=== PATIENT | female | born 1945 | race Two or more races ===

== ENCOUNTER 2023-11-27 20:59 | Inpatient (IN) | payer OTHER ==
[~2023-11-27] VITALS: Ht 154.9 cm; Wt 49.9 kg
[2023-11-27 21:57] LABS: HEMOGLOBIN 13.8 g/dL (12.0-15.00); MEAN CORPUSCULAR HEMOGLOBIN 32.1 pg (27.00-32.0); MEAN CORPUSCULAR HGB CONC 34.5 g/dl (32.0-36.0); PLATELET COUNT 490 K/uL (150-450); RED CELL DISTRIBUTION WIDTH 13.4 % (11.5-14.5)
[2023-11-27 22:00] LABS: URINE APPEARANCE Clear; URINE BILIRRUBIN Negative (NEGATIVE); URINE BLOOD Negative; URINE COLOR Yellow; URINE GLUCOSE Negative (NEGATIVE); URINE LEUKOCYTE Negative; URINE NITRATE Negative; URINE PROTEIN Negative (NEGATIVE); URINE UROBILINOGEN 0.2 E.U./dl
[2023-11-27 22:04] LABS: URINE BACTERIA 8.8 uL (0.0-1933); URINE RBC 3.1 uL (0.0-20.8); URINE WBC 1.9 uL (0.0-23.2)
[2023-11-27 22:08] LABS: URINE EPITHELIAL CELLS 1.2 uL (0.0-38.8)
[2023-11-27 22:10] LABS: CALCIUM 10.2 mg/dL (8.5-10.1); CREATININE SERUM 0.66 mg/dL (0.55-1.02); GFR 86.84; POTASSIUM 3.87 mEq/L (3.5-5.1)
[2023-11-27 22:35] LABS: ABG PH 7.445 (7.35-7.45); ABG PO2 60.5 mmHg (80-100); ABG pCO2 38.1 mmHg (35-45)
[2023-11-27 22:37] LABS: BASE EXCESS 1.7 mmol/l; BICARBONATE 25.6 mmol/l (23-25); SaO2 92.1 %
[2023-11-27 22:38] LABS: Tco2 26.8 mmol/l
[2023-11-27 22:41] LABS: o2 21 %
[2023-11-27 22:42] LABS: allen test SATISFACTORY; puncture site RADIAL LEFT
[2023-11-29 07:09] LABS: INR 1.05; PARTIAL THROMBOPLASTIN TIME 30.1 SECONDS (22.0-34.0)
[2023-11-29 07:32] LABS: ALKALINE PHOSPHATASE 77 U/L (50-136); ALT/SGPT 22 U/L (12-78); ANION GAP 8 (10.0-20.0); AST/SGOT 11 U/L (15-37); BILIRUBIN TOTAL 0.34 mg/dL (0.3-1.2); BILIRUBIN,CONJUGATED < 0.10 mg/dL (0.0-0.2); BILIRUBIN,UNCONJUGATED 0.24 mg/dL (0.0-0.6); BLOOD UREA NITROGEN 19 mg/dL (7-18); BUN CREA RATIO 34 (7.0-25.0); CALCIUM 8.7 mg/dL (8.5-10.1); CARBON DIOXIDE 26 mEq/L (21-32); CHLORIDE 107 mmol/L (98-107); CHOL HDL RATIO 2.6 (0-5.0); CHOLESTEROL 151 mg/dL (0-200); CREATININE SERUM 0.56 mg/dL (0.55-1.02); GFR 104.97; GLUCOSE FASTING 152 mg/dL (65-100); HDL 58 mg/dl (40-60); LDL 84 mg/dl (0-130); OSMOLALITY SERUM 277 MOSM/KG (275-295); POTASSIUM 5.22 mEq/L (3.5-5.1); SODIUM 136 mmol/L (136-145); TRIGLYCERIDES 44 mg/dL (0-150); VLDL 8 (0-39)
[2023-11-29 07:33] LABS: C-REACTIVE PROTEIN < 0.29 MG/DL (0.00-0.29)
[2023-11-29 08:01] LABS: URINE APPEARANCE Clear; URINE BILIRRUBIN Negative (NEGATIVE); URINE BLOOD Negative; URINE COLOR Yellow; URINE GLUCOSE Negative (NEGATIVE); URINE LEUKOCYTE Negative; URINE NITRATE Negative; URINE PROTEIN Negative (NEGATIVE); URINE UROBILINOGEN 0.2 E.U./dl
[2023-11-29 08:03] LABS: URINE EPITHELIAL CELLS 4.6 uL (0.0-38.8)
[2023-11-29 08:48] LABS: URINE BACTERIA 3.7 uL (0.0-1933); URINE RBC 1.4 uL (0.0-20.8); URINE WBC 0.9 uL (0.0-23.2)
[2023-11-29 14:36] LABS: HEMATOCRIT 37.2 % (36.0-45.00); HEMOGLOBIN 12.3 g/dL (12.0-15.00); MEAN CELL VOLUME 95.6 fL (80.00-100.00); MEAN CORPUSCULAR HEMOGLOBIN 31.7 pg (27.00-32.0); MEAN CORPUSCULAR HGB CONC 33.1 g/dl (32.0-36.0); PLATELET COUNT 492 K/uL (150-450); RED CELL DISTRIBUTION WIDTH 13.1 % (11.5-14.5)
[2023-11-29 14:43] LABS: ERYTHROCYTE SEDIMENTATION RATE 51 mm/hr
[2023-11-30 13:33] LABS: ABG PH 7.397 (7.35-7.45)
[2023-11-30 13:34] LABS: BASE EXCESS -1.1 mmol/l; BICARBONATE 23.5 mmol/l (23-25); SaO2 96.6 %; Tco2 24.7 mmol/l; allen test SATISFACTORY; o2 21 %; puncture site RADIAL RIGHT
[2023-12-01 06:51] LABS: HEMATOCRIT 34.9 % (36.0-45.00); MEAN CELL VOLUME 92.5 fL (80.00-100.00); MEAN CORPUSCULAR HEMOGLOBIN 31.7 pg (27.00-32.0); MEAN CORPUSCULAR HGB CONC 34.2 g/dl (32.0-36.0); PLATELET COUNT 425 K/uL (150-450); RED BLOOD COUNT 3.78 M/uL (4.00-6.00); RED CELL DISTRIBUTION WIDTH 13.4 % (11.5-14.5)
[2023-12-01 07:18] LABS: BILIRUBIN TOTAL 0.25 mg/dL (0.3-1.2); CALCIUM 8.8 mg/dL (8.5-10.1); CREATININE SERUM 0.53 mg/dL (0.55-1.02); GFR 111.86; GLOBULINA 3.9 G/DL (2.4-3.5); MAGNESIUM 2.4 mg/dL (1.8-2.4); PHOSPHOROUS 2.1 mg/dL (2.5-4.9); POTASSIUM 3.77 mEq/L (3.5-5.1); TOTAL PROTEIN 6.9 gm/dL (6.4-8.2)
[2023-12-03 06:26] LABS: ABG PH 7.471 (7.35-7.45); ABG PO2 68.3 mmHg (80-100); ABG pCO2 42.3 mmHg (35-45); BASE EXCESS 5.9 mmol/l; BICARBONATE 30.2 mmol/l (23-25); Tco2 31.5 mmol/l; allen test SATISFACTORY; o2 21 %; puncture site RADIAL LEFT
[2023-12-03 06:27] LABS: SaO2 94.9 %
[2023-12-03 06:58] LABS: HEMATOCRIT 35.2 % (36.0-45.00); HEMOGLOBIN 12.4 g/dL (12.0-15.00); MEAN CELL VOLUME 92.6 fL (80.00-100.00); MEAN CORPUSCULAR HEMOGLOBIN 32.6 pg (27.00-32.0); MEAN CORPUSCULAR HGB CONC 35.2 g/dl (32.0-36.0); PLATELET COUNT 398 K/uL (150-450); RED BLOOD COUNT 3.81 M/uL (4.00-6.00); RED CELL DISTRIBUTION WIDTH 13.4 % (11.5-14.5)
[2023-12-03 07:23] LABS: BILIRUBIN TOTAL 0.36 mg/dL (0.3-1.2); CALCIUM 9.2 mg/dL (8.5-10.1); CREATININE SERUM 0.59 mg/dL (0.55-1.02); GFR 98.83; GLOBULINA 3.9 G/DL (2.4-3.5); MAGNESIUM 2.4 mg/dL (1.8-2.4); PHOSPHOROUS 2.5 mg/dL (2.5-4.9); POTASSIUM 4.05 mEq/L (3.5-5.1); TOTAL PROTEIN 6.9 gm/dL (6.4-8.2)
[2023-12-05 19:29] LABS: HEMATOCRIT 36.9 % (36.0-45.00); HEMOGLOBIN 12.6 g/dL (12.0-15.00); MEAN CELL VOLUME 92.9 fL (80.00-100.00); MEAN CORPUSCULAR HEMOGLOBIN 31.6 pg (27.00-32.0); MEAN CORPUSCULAR HGB CONC 34.1 g/dl (32.0-36.0); PLATELET COUNT 391 K/uL (150-450); RED BLOOD COUNT 3.97 M/uL (4.00-6.00)
[2023-12-05 20:03] LABS: BILIRUBIN TOTAL 0.38 mg/dL (0.3-1.2); CALCIUM 9.7 mg/dL (8.5-10.1); CREATININE SERUM 0.99 mg/dL (0.55-1.02); GFR 54.39; GLOBULINA 3.6 G/DL (2.4-3.5); MAGNESIUM 2.4 mg/dL (1.8-2.4); PHOSPHOROUS 3.2 mg/dL (2.5-4.9); POTASSIUM 4.9 mEq/L (3.5-5.1); TOTAL PROTEIN 6.6 gm/dL (6.4-8.2)
[2023-12-06] MEDS ORDERED: COZAAR50 MG PO (12:00)
[2023-12-06] MEDS ORDERED: LIPITOR20 MG PO (12:00)
[2023-12-06] MEDS ORDERED: NORVASC2.5 M1 PO (12:00)
[2023-12-06] MEDS ORDERED: MONTELUKAST SOD10 MG PO (12:01)
[2023-12-06] MEDS ORDERED: PANTOPRAZOLE SO40 MG PO (12:01)
== END 2023-12-06 13:20 | disposition home or self-care (01) | DRG 192 ==
LOC: ER 20:59 → MEDJ 11-28 00:27
PROVIDERS: General Practice; ADMIT Internal Medicine; ATTEND Internal Medicine
PROC: BB24ZZZ Computerized Tomography (CT Scan) of Bilateral Lungs (ICD-10-PCS; principal; 2023-11-27)
PROC: 3E0F7GC Introduction of Other Therapeutic Substance into Respiratory Tract, Via Natural or Artificial Opening (ICD-10-PCS; 2023-11-28)
PROC: 4A12X4Z Monitoring of Cardiac Electrical Activity, External Approach (ICD-10-PCS; 2023-11-28)
DX: J44.1 Chronic obstructive pulmonary disease with (acute) exacerbation (principal); J98.01 Acute bronchospasm; I10 Essential (primary) hypertension; E78.49 Other hyperlipidemia; R09.02 Hypoxemia